=== PATIENT | male | born 1970 | race Caucasian/White ===

== ENCOUNTER 2017-01-29 10:45 | Day surgery (SDC) | payer BC ==
[2017-01-29] MEDS ORDERED: Lidocaine 2% 5 ML SDV ONE (12:29)
[2017-01-29] MEDS ORDERED: Betamethasone Acetate/Betamethasone Sod Phosphate 30 MG/5 ML MDV ONE (12:29)
[2017-01-29] MEDS ORDERED: Iopamidol 408 MG/ML 50 ML SDV ONE (12:29)
--- NOTE | 2017-01-30 12:06 | OR ---
SURGEON: Gabriela Hoskins D.O. DATE OF PROCEDURE: 01/29/2017 OR STAFF PRESENT: 1. Betzy Barry RN. 2. Jenae Egan RN. FIELD BROOMER: RT Mis WOUND CLASSIFICATION: I PREOPERATIVE DIAGNOSES: 1. Cervicalgia. 2. Cervical spondylosis. 3. Cervical degenerative disk disease. POSTOPERATIVE DIAGNOSES: 1. Cervicalgia. 2. Cervical spondylosis. 3. Cervical degenerative disk disease. PROCEDURES PERFORMED: 1. Left C4, C5 medial branch blocks. 2. Fluoroscopic guidance for needle placement. 3. Local with oral Valium for sedation. SCREENING QUESTIONS: The patient answered "No" to all the following questions: 1. Are you allergic to iodine, Betadine or latex? 2. Do you have a bleeding disorder? 3. Are you on anti-inflammatories or blood thinners? 4. Do you have any current local or systemic infections? MEDICAL NECESSITY: This is a patient with chronic low back pain who comes in for the above diagnostic procedure. This procedure is being performed in accordance with national guidelines written by the [employer]; please see medical necessity note in chart. DESCRIPTION OF PROCEDURE: The patient had the procedure thoroughly explained including risks, benefits and alternatives. Consent was signed in my clinic indicating understanding and willingness to proceed. The patient presented to [facility] outpatient [facility] and was escorted to the dressing room to disrobe and change into a hospital gown. Preoperative history and screening were performed by my nurse. Vital signs were taken and stable. The patient reported that Valium 10 milligrams was taken prior to the procedure. The patient was brought back to the procedure room and placed in the prone position on the procedure room table. The neck and upper back was prepped with ChloraPrep and sterilely draped. All personnel in the procedure room were dressed in appropriate attire including surgical scrubs, head and shoe covers. This was to ensure sterility while in the treatment room. During the time fluoroscopy was in use all personnel in the operating room wore lead ross with thyroid collars. Sterile technique was used during the procedure. The fluoroscope was positioned to provide a AP/LAT/oblique views for left cervical medial branch blocks. Then the left C4 medial branch block was begun by anesthetizing the skin and soft tissues with 2 cubic centimeters of 2% Preservative-Free Lidocaine with a 25-gauge 1.5 inchneedle. There were no signs of infection at the site of needle skin insertions. Using fluoroscopic guidance a sterile 22-gauge 3.5 inch spinal needle waspositioned at the junction of the mid lateral border of C4 lateral process. Precise needle placement was confirmed by fluoroscopy and 0.2 cubic centimeters of IsoVue-200 contrast dye which was injected through microbore tubing under live fluoroscopy and showed no intravascular flow pattern and adequate flow over the target C4 medial branch. Then 0.5 cubic centimeters of a mixture of celestone and 2% lidcaine Preservative-Free was injected slowly without complications after negative aspiration. Then the fluoroscope was positioned to provide AP/LAT/and oblique views for the left C5 medial branch. This was begun by anesthetizing the skin and soft tissues. Using fluroscopic guidance, a sterile 22-gauge 3.5 inch needle was placed at the junction of the mid lateral process of the C5 vertebral body. Precise needle placement was confirmed by fluoroscopy with 0.2 cubic centimeters of IsoVue-200 contrast dye that was injected through microbore tubing under live fluoroscopy and showed no intravascular flow pattern and adequate flow over the target medial branch. After negative aspiration, 0.5 cubic centimeters of local and celestone mixture was injected without complications. The procedure was well tolerated and vital signs were stable during and after the procedure. The staff escorted the patient to the recovery area. The patient was given both oral and written discharge and followup instructions. The patient will follow up with a pain diary. The patient was given both oral and written discharge and followup instructions. The patient voiced understanding including understanding of those signs and symptoms that would require emergency care and knows how to contact the office if there are any questions or concerns in the meantime. PREOPERATIVE PAIN: 6/10. POSTOPERATIVE PAIN: 0/10. FOLLOWUP: Follow up in the Pain Clinic in 3 weeks. HOGLCHR / SHRUTHI /[id number] BARRY
== END 2017-01-29 13:41 ==
LOC: MW.SDS 10:45
PROVIDERS: ATTEND Anesthesiology
DX: M47.892 Other spondylosis, cervical region (principal); M50.11 Cervical disc disorder with radiculopathy, high cervical region; M51.36 Other intervertebral disc degeneration, lumbar region; M96.1 Postlaminectomy syndrome, not elsewhere classified; E66.01 Morbid (severe) obesity due to excess calories; M79.1 Myalgia; G89.4 Chronic pain syndrome; G62.9 Polyneuropathy, unspecified; M51.34 Other intervertebral disc degeneration, thoracic region; F17.200 Nicotine dependence, unspecified, uncomplicated; Z88.2 Allergy status to sulfonamides; Z79.891 Long term (current) use of opiate analgesic; Z79.899 Other long term (current) drug therapy; Z68.41 Body mass index [BMI] 40.0-44.9, adult
CPT/HCPCS: 64450; 64490; 64491; J0702; Q9966

== ENCOUNTER 2017-02-12 10:57 | Day surgery (SDC) | payer BC ==
[2017-02-12] MEDS ORDERED: Lidocaine 2% 5 ML SDV ONE (11:27)
[2017-02-12] MEDS ORDERED: Ropivacaine 0.5% 5 MG/ML 30 ML SDV ONE (11:27)
[2017-02-12] MEDS ORDERED: Betamethasone Acetate/Betamethasone Sod Phosphate 30 MG/5 ML MDV ONE (11:27)
[2017-02-12] MEDS ORDERED: Iopamidol 408 MG/ML 50 ML SDV ONE (11:27)
--- NOTE | 2017-02-12 18:16 | OR ---
SURGEON: Gabriela Hoskins D.O. DATE OF PROCEDURE: 02/12/2017 OR STAFF PRESENT: 1. Jenae Egan RN. 2. Ariane Arias, endoscope technician. WOUND CLASSIFICATION: I. PREOPERATIVE DIAGNOSES: 1. Cervical spondylosis. 2. Chronic pain syndrome. 3. Cervicalgia. POSTOPERATIVE DIAGNOSES: 1. Cervical spondylosis. 2. Chronic pain syndrome. 3. Cervicalgia. PROCEDURES PERFORMED: 1. Right C4 medial branch block. 2. Right C5 medial branch block. 3. Fluoroscopic guidance for needle placement. 4. Local with oral Valium for sedation. SCREENING QUESTIONS: The patient answered "No" to all the following questions: 1. Are you allergic to iodine, Betadine or latex? 2. Do you have a bleeding disorder? 3. Are you on anti-inflammatories or blood thinners? 4. Do you have any current local or systemic infections? MEDICAL NECESSITY: This is a patient with chronic low back pain who comes in for the above diagnostic procedure. This procedure is being performed in accordance with national guidelines written by the [employer]; please see medical necessity note in chart. DESCRIPTION OF PROCEDURE: The patient had the procedure thoroughly explained including risks, benefits and alternatives. Consent was signed in my clinic indicating understanding and willingness to proceed. The patient presented to [facility] outpatient [facility] and was escorted to the dressing room to disrobe and change into a hospital gown. Preoperative history and screening were performed by my nurse. Vital signs were taken and stable. The patient reported that Valium 10 milligrams was taken prior to the procedure. The patient was brought back to the procedure room and placed in the prone position on the procedure room table. A pillow was placed under the abdomen in order to flatten the lumbar lordosis. The back was prepped with ChloraPrep and sterilely draped. All personnel in the procedure room were dressed in appropriate attire including surgical scrubs, head and shoe covers. This was to ensure sterility while in the treatment room. During the time fluoroscopy was in use all personnel in the operating room wore lead ross with thyroid collars. Sterile technique was used during the procedure. The fluoroscope was positioned to provide a right oblique view. Then the right C4 medial branch block was begun by anesthetizing the skin and soft tissues with 2 cubic centimeters of 2% Preservative-Free Lidocaine with a 25-gauge 1.5 inch needle. There were no signs of infection at the site of needle skin insertions. Using fluoroscopic guidance a sterile 22-gauge 3.5 inch spinal needle was positioned at the midline junction of the lateral C4 vertebral body. Precise needle placement was confirmed by fluoroscopy and 0.2 cubic centimeters of IsoVue-200 contrast dye which was injected through microbore tubing under live fluoroscopy and showed no intravascular flow pattern and adequate flow over the target C4 medial branch. Then 0.5 cubic centimeters of mixture of celestone and 2% lidocaine Preservative -Free was injected slowly without complications after negative aspiration. Then the fluoroscope was positioned to provide a right oblique view for the right C5 medial branch. This was begun by anesthetizing the skin and soft tissues. The fluoroscope was positioned and a sterile 22-gauge 3.5 inch needle was placed at the middle junction of the articular process of the C5 vertebral body. Precise needle placement was confirmed by fluoroscopy. Then 0.2 cubic centimeters of IsoVue-200 contrast dye was injected through microbore tubing under live fluoroscopy and showed no intravascular flow pattern and adequate flow over the target medial branch. After negative aspiration, 0.5 cubic centimeters celestone and lidocaine PF was injected without complications. The procedure was well tolerated and vital signs were stable during and after the procedure. The staff escorted the patient to the recovery area. The patient was given both oral and written discharge and followup instructions. The patient will follow up with a pain diary which will be evaluated over this evening doing things that would normally cause pain. We will evaluate the efficacy of the diagnostic lumbar medial branch blocks as the patient will follow up in the clinic the next day. The patient was given both oral and written discharge and followup instructions. The patient voiced understanding including understanding of those signs and symptoms that would require emergency care and knows how to contact the office if there are any questions or concerns in the meantime. PREOPERATIVE PAIN: 7/10. POSTOPERATIVE PAIN: 0/10. FOLLOWUP: Follow up in the Pain Clinic in 3 weeks. CIPRIANO / SHRUTHI /[id number] BARRY
== END 2017-02-12 13:34 ==
LOC: MW.SDS 10:57
PROVIDERS: ATTEND Anesthesiology
PROC: 3E0U3BZ Introduction of Anesthetic Agent into Joints, Percutaneous Approach (ICD-10-PCS; principal; 2017-02-12)
DX: M47.892 Other spondylosis, cervical region (principal); G89.4 Chronic pain syndrome; M54.12 Radiculopathy, cervical region; E66.01 Morbid (severe) obesity due to excess calories; G62.9 Polyneuropathy, unspecified; M51.34 Other intervertebral disc degeneration, thoracic region; M54.17 Radiculopathy, lumbosacral region; M51.36 Other intervertebral disc degeneration, lumbar region; M79.1 Myalgia; F17.200 Nicotine dependence, unspecified, uncomplicated; Z88.2 Allergy status to sulfonamides; Z79.899 Other long term (current) drug therapy; Z68.41 Body mass index [BMI] 40.0-44.9, adult
CPT/HCPCS: 64450; J0702; Q9966; J2795

== ENCOUNTER 2017-03-03 11:30 | Emergency (ER) | payer BC ==
[2017-03-03 12:36] LABS: CHLORIDE,CL 109 mmol/L (98-110); SODIUM,NA 139 mmol/L (136-146)
[2017-03-03] MEDS ORDERED: Alum Hydrox/Mag Hydrox/Simeth 15 ML, Lidocaine 2% 5 ML PO ONE ×2 (12:51)
[2017-03-03 16:03] VITALS: BP 113/68
--- NOTE | 2017-03-03 19:54 | EDM.PDOC ---
ED HISTORY OF PRESENT ILLNESS - General Chief Complaint: Chest Pain Stated Complaint: CHEST PAIN Time Seen by Provider: 03/03/17 11:34 Source of Information: Reports: Patient History Limitations: Reports: No limitations - History of Present Illness INITIAL COMMENTS - FREE TEXT/NARRATIVE: Presents reporting right upper quadrant pain along with some sweating. The patient states that this morning he had some reflux along with right upper quadrant pain. He has had this before but not as severe and it did not last as long. He does became concerned and came to the emergency room. He denies nausea , shortness of breath, URI symptoms, fever. He has had a previous cholecystectomy and he does take Prevacid for acid reflux. - Related Data Allergies/ADRs: Allergies Allergy/AdvReac Type Severity Reaction Status Date / Time Sulfa (Sulfonamide Allergy Hives Verified 03/03/17 11:43 Antibiotics) Home Meds: Home Meds Baclofen 10 mg PO ASDIRECTED PRN 05/08/15 [History] Diclofenac Sodium [Voltaren] 1 applic TOP ASDIRECTED 05/08/15 [History] Gabapentin [Neurontin] 900 mg PO TID 05/08/15 [History] Hydrocodone/Acetaminophen [Hydrocodon-Acetaminophn 10-325] 1 tab PO ASDIRECTED PRN 05/08/15 [History] Omeprazole 1 tab PO DAILY 05/08/15 [History] buPROPion [buPROPion XL] 1 tab PO DAILY 05/08/15 [History] DULoxetine HCl [Cymbalta] 20 mg PO BID 02/22/16 [History] Diazepam [Valium] 10 mg PO Q8HR 02/22/16 [History] oxyCODONE ER [OxyCONTIN] 10 mg PO Q12HR 02/22/16 [History] Past Medical History - Past Health History Medical/Surgical History: Denies Medical/Surgical History Gastrointestinal History: Reports: GERD Musculoskeletal History: Reports: Arthritis, Back pain, chronic Other Musculoskeletal History: Chronic upper back pain, arthritis - Infectious Disease History Infectious Disease History: Reports: Chicken pox - Past Surgical History GI Surgical History: Reports: Cholecystectomy Other Neurological Surgeries/Procedures: Microdiskectomy to low back Musculoskeletal Surgical History: Reports: Other (see below) Other Musculoskeletal Surgeries/Procedures:: L3-L4 discetomy, L4-L5 laminectomy 02/2016. Social & Family History - Family History Family Medical History: Noncontributory Oncologic: Reports: Breast - Tobacco Use Smoking Status *Q: Never Smoker Years of Tobacco use: 25 Packs/Tins Daily: 1 - Caffeine Use Caffeine Use: Reports: None - Recreational Drug Use Recreational Drug Use: No Drug Use in Last 12 Months: No ED ROS GENERAL - Review of Systems Review Of Systems: ROS reveals no pertinent complaints other than HPI. ED EXAM, GENERAL - Physical Exam Exam: See Below Exam Limited By: No limitations General Appearance: alert, no apparent distress Ears: normal external exam Nose: normal inspection Throat/Mouth: Normal inspection Head: atraumatic, normocephalic Neck: normal inspection Respiratory/Chest: no respiratory distress, lungs clear, normal breath sounds Cardiovascular: normal peripheral pulses, regular rate, rhythm, no murmur GI/Abdominal: normal bowel sounds, soft, non tender, no distention Back Exam: normal inspection Extremities: normal inspection Neurological: alert, oriented Psychiatric: normal affect, normal mood Skin Exam: Warm, Dry, Intact, Normal color, No rash Lymphatic: no adenopathy Course - Vital Signs Last Recorded V/S: Last Vital Signs Temp 36.1 C 03/03/17 11:41 Pulse 78 03/03/17 14:09 Resp 20 03/03/17 11:41 BP 113/68 03/03/17 14:09 Pulse Ox 96 03/03/17 14:09 - Orders/Labs/Meds Orders: Active Orders 24 hr Category Date Time Status EKG Documentation Completion [RC] STAT Care 03/03/17 11:43 Active Labs: Laboratory Tests 03/03/17 03/03/17 03/03/17 Range/Units 11:56 11:56 11:56 WBC 7.44 (4.0-11.0) K/uL RBC 5.48 (4.50-5.90) M/uL Hgb 15.7 (13.0-17.0) g/dL Hct 45.2 (38.0-50.0) % MCV 82.5 (80.0-98.0) fL MCH 28.6 (27.0-32.0) pg MCHC 34.7 (31.0-37.0) g/dL RDW Std Deviation 39.6 (28.0-62.0) fl RDW Coeff of Luis Carlos 13 (11.0-15.0) % Plt Count 254 (150-400) K/uL MPV 11.10 (7.40-12.00) fL Neut % (Auto) 59.4 (48.0-80.0) % Lymph % (Auto) 29.2 (16.0-40.0) % Reynolds % (Auto) 7.1 (0.0-15.0) % Eos % (Auto) 3.6 (0.0-7.0) % Baso % (Auto) 0.7 (0.0-1.5) % Neut # (Auto) 4.4 (1.4-5.7) K/uL Lymph # (Auto) 2.2 (0.6-2.4) K/uL Reynolds # (Auto) 0.5 (0.0-0.8) K/uL Eos # (Auto) 0.3 (0.0-0.7) K/uL Baso # (Auto) 0.1 (0.0-0.1) K/uL Nucleated RBC % 0.0 /100WBC Nucleated RBCs # 0 K/uL Sodium 139 (136-146) mmol/L Potassium 4.0 (3.5-5.1) mmol/L Chloride 109 (98-110) mmol/L Carbon Dioxide 22 (21-31) mmol/L BUN 13 (6.0-23.0) mg/dL Creatinine 0.8 (0.6-1.5) mg/dL Est Cr Clr Drug Dosing TNP Estimated GFR (MDRD) > 60.0 ml/min Glucose 134 H (60-110) mg/dL Calcium 9.0 (8.8-10.8) mg/dL Total Bilirubin 0.7 (0.1-1.5) mg/dL AST 30 (5-40) IU/L ALT 56 H (8-54) IU/L Alkaline Phosphatase 104 (40-150) Troponin I < 0.10 (0.0-0.29) NG/ML Total Protein 7.0 (6.0-8.0) g/dL Albumin 4.0 (3.5-5.0) g/dL Globulin 3.0 (2.0-3.5) g/dL Albumin/Globulin Ratio 1.3 (1.3-2.8) Amylase 34 (10-90) U/L Lipase 13 (7-80) U/L Meds: Medications Discontinued Medications Generic Name Dose Route Start Last Admin Trade Name Jamil PRN Reason Stop Dose Admin Al Hydroxide/Mg Hydroxide 15 0 ml 03/03/17 12:51 03/03/17 16:00 ml/ Lidocaine HCl 5 ml PO 03/03/17 12:52 20 each ONETIME ONE Administration Departure - Departure Time of Disposition: 14:09 Disposition: Home, Self-Care 01 Condition: good Clinical Impression: Abdominal pain Qualifiers: Abdominal location: right upper quadrant Qualified Code(s): R10.11 - Right upper quadrant pain Referrals: Crystal Paulson NP [Primary Care Provider] - Forms: ED Department Discharge Additional Instructions: 1. No explanation for your symptoms has been found 2. please followup in primary care. Your EKG and lab was normal today. 3. TUMS as needed for acid reflux - My Orders Last 24 Hours: My Active Orders 03/03/17 11:43 EKG Documentation Completion [RC] STAT - Assessment/Plan Last 24 Hours: My Active Orders 03/03/17 11:43 EKG Documentation Completion [RC] STAT
== END 2017-03-03 14:09 | disposition home or self-care (01) ==
LOC: MW.ED 11:30
DX: R10.11 Right upper quadrant pain (principal); K21.9 Gastro-esophageal reflux disease without esophagitis; Z88.2 Allergy status to sulfonamides; Z79.899 Other long term (current) drug therapy
CPT/HCPCS: 36415; 80053; 82150; 83690; 84484; 85025; 93005; 99285; A9270; 99283

== ENCOUNTER → 2017-03-05 | Outpatient (CLI) | payer BC | LOC: MW.CHPM 08:52 | PROVIDERS: ATTEND Anesthesiology | DX: Z51.81 Encounter for therapeutic drug level monitoring (principal); Z79.891 Long term (current) use of opiate analgesic | CPT/HCPCS: 80305 ==

== ENCOUNTER 2017-05-26 10:41 | Day surgery (SDC) | payer BC ==
--- NOTE | 2017-05-26 11:16 | PCM.PREANE ---
Preanesthetic Assessment - Anesthesia/Transfusion/Family Hx Anesthesia History: Prior Anesthesia Without Reaction Other Type of Anesthesia Reaction Comment: Denies any known problem in past, no known family hx: problems Family History of Anesthesia Reaction: No Transfusion History: No Prior Transfusion(s) Intubation History: Unknown - Review of Systems General: No Symptoms Pulmonary: No Symptoms Cardiovascular: No Symptoms Gastrointestinal: No symptoms Neurological: No Symptoms Other: Reports: None - Physical Assessment Height: 1.85 m Weight: 140 kg ASA Class: 2 Mental Status: Alert & Oriented x3 Airway Class: Mallampati = 3 Dentition: Reports: Normal Dentition Thyro-Mental Finger Breadths: 3 Mouth Opening Finger Breadths: 2 (very small mouth) ROM/Head Extension: Full Lungs: Clear to auscultation, Normal respiratory effort Cardiovascular: Regular Rate, Regular Rhythm - Allergies Allergies/Adverse Reactions: Allergies Allergy/AdvReac Type Severity Reaction Status Date / Time Sulfa (Sulfonamide Allergy Hives Verified 03/03/17 11:43 Antibiotics) - Blood Blood Available: No - Anesthesia Plan Pre-Op Medication Ordered: None - Acknowledgements Anesthesia Type Planned: MAC Pt an Appropriate Candidate for the Planned Anesthesia: Yes Alternatives and Risks of Anesthesia Discussed w Pt/Guardian: Yes Pt/Guardian Understands and Agrees with Anesthesia Plan: Yes PreAnesthesia Questionnaire - Past Health History Medical/Surgical History: Denies Medical/Surgical History HEENT History: Reports: Other (See Below) Other HEENT History: wears glasses Respiratory History: Reports: Sleep Apnea Other Respiratory History: uses CPAP Gastrointestinal History: Reports: GERD Musculoskeletal History: Reports: Arthritis, Back Pain, Chronic Other Musculoskeletal History: Chronic upper back pain, arthritis Psychiatric History: Reports: Anxiety, Depression Endocrine/Metabolic History: Reports: Obesity/BMI 30+ (BMI 40.7) - Infectious Disease History Infectious Disease History: Reports: Chicken Pox - Past Surgical History Head Surgeries/Procedures: Reports: None HEENT Surgical History: Reports: Other (See Below) (corrective eye surgery) GI Surgical History: Reports: Cholecystectomy, EGD Neurological Surgical History: Reports: Lumbar Spine Other Neurological Surgeries/Procedures: Microdiskectomy to low back Musculoskeletal Surgical History: Reports: Other (See Below) Other Musculoskeletal Surgeries/Procedures:: L3-L4 discetomy, L4-L5 laminectomy 02/2016. Dermatological Surgical History: Reports: Other (See Below) (exc. of back lipoma ) - SUBSTANCE USE Smoking Status *Q: Former Smoker (quit 6-7 years ago) Tobacco Use Within Last Twelve Months: Snuff/Dip Recreational Drug Use History: No - HOME MEDS Home Medications: Home Meds Diclofenac Sodium [Voltaren] 1 applic TOP ASDIRECTED PRN 05/08/15 [History] Gabapentin [Neurontin] 900 mg PO TID 05/08/15 [History] DULoxetine HCl [Cymbalta] 60 mg PO DAILY 02/22/16 [History] Diazepam [Valium] 1 - 2 tab PO ASDIRECTED PRN 02/22/16 [History] oxyCODONE ER [OxyCONTIN] 10 mg PO Q12HR PRN 02/22/16 [History] Ketamine Hcl Soln 1 applic TOP ASDIRECTED PRN 05/25/17 [History] LORazepam 1 mg PO BEDTIME PRN 05/25/17 [History] Lidocaine/Prilocaine [Lidocaine-Prilocaine Cream] 1 applic TOP ASDIRECTED PRN [History] Methocarbamol 750 mg PO TID 05/25/17 [History] Mometasone Furoate [Nasonex] 1 spray NASBOTH DAILY 05/25/17 [History] Ranitidine HCl [Zantac] 150 mg PO BID 05/25/17 [History] oxyCODONE HCl [Oxycontin] 15 mg PO ASDIRECTED PRN 05/25/17 [History]
[2017-05-26] MEDS ORDERED: Lidocaine 2% 5 ML SDV ONE (11:45)
[2017-05-26] MEDS ORDERED: Propofol 200 MG/20 ML SDV ONE (11:51)
[2017-05-26] MEDS ORDERED: fentaNYL 250 MCG/5 ML SDV ONE (11:51)
[2017-05-26] MEDS ORDERED: Midazolam 1 MG/ML 2 ML SDV ONE (11:51)
[2017-05-26] MEDS ORDERED: ceFAZolin 2 GM in Premix Bag 1 BAG IV ONE (12:17)
--- NOTE | 2017-05-26 15:13 | PCM48HPAN ---
Post Anesthesia Note - EVALUATION WITHIN 48HRS OF ANESTHETIC Vital Signs in Normal Range: Yes Patient Participated in Evaluation: Yes Respiratory Function Stable: Yes Airway Patent: Yes Cardiovascular Function Stable: Yes Hydration Status Stable: Yes Pain Control Satisfactory: Yes Nausea and Vomiting Control Satisfactory: Yes Mental Status Recovered: Yes - COMMENTS/OBSERVATIONS Free Text/Narrative:: no anesthesia problems. Patient skipped recovery room phase of postoperative care.
--- NOTE | 2017-05-26 16:38 | CR ---
EXAMINATION: Thoracic spine HISTORY: Low back pain COMPARISON: None TECHNIQUE: 11 fluoroscopic images provided FINDINGS/IMPRESSION: Operative control films demonstrate placement of 2 spinal stimulator leads with in the midthoracic spine at approximately T5-T7.
--- NOTE | 2017-05-26 23:39 | OR ---
SURGEON: Gabriela Hoskins D.O. DATE OF PROCEDURE: 05/26/2017 ANESTHESIA: MAC. ANESTHESIOLOGIST: Betzy Huff CRNA. OR STAFF PRESENT: 1. Lane Skinner RN. 2. Claudia Bear RN. 3. Tawnya Altamirano CST. QUALITY TECHNICIAN FIBERGLASS: RT Claudia. WOUND CLASSIFICATION: 1. PREOPERATIVE DIAGNOSES: 1. Chronic pain syndrome. 2. Lumbar radiculopathy. 3. Thoracic radiculopathy. 4. Peripheral neuropathy, bilateral lower extremities. 5. Failed back surgery syndrome, lumbar POSTOPERATIVE DIAGNOSES: 1. Chronic pain syndrome. 2. Lumbar radiculopathy. 3. Thoracic radiculopathy. 4. Peripheral neuropathy, bilateral lower extremities. 5. Failed back surgery syndrome, lumbar PROCEDURE PERFORMED: 1. Spinal cord stimulator trial with [employer] Infinion 16 , 50 cm, 16 contact trial lead placed to the top of T5 on the right. 2. Spinal cord stimulator trial with [employer] Infinion 16 , 50 cm, 16 contact trial lead to the top of T5 on the right. 3. Fluoroscopic guidance for needle placement. 4. Local with oral Valium for sedation. SCREENING QUESTIONS: The patient answered no to all the following questions: 1. Are you allergic to iodine, Betadine, or latex? 2. Do you have a bleeding disorder? 3. Are you on anti-inflammatories or blood thinners? 4. Are you ? 5. Do you have any current local or systemic infections? 6. Do you have any joint replacements, heart valve replacements or a pacemaker? DESCRIPTION OF PROCEDURE: The patient had the procedure thoroughly explained including risks, benefits, and alternatives. Consent was signed in my clinic indicating understanding and willingness to proceed. The patient presented to [facility] and was escorted to the dressing room to disrobe and change into a hospital gown. Preoperative history and screening were performed by the nurse. Vital signs were taken and stable. The patient was set up with an IV prior to the procedure. The patient was brought back to the procedure room and placed in the prone position on the procedure room table. A pillow was placed under the abdomen in order to flatten the lumbar lordosis. The patient was positioned comfortably and there was no evidence of infection at the sites of needle insertion. The back was prepped with ChloraPrep and sterilely draped. All personnel in the operating room were dressed in appropriate attire including surgical scrubs, head and shoe covers. This was to ensure sterility while in the treatment room. During the time fluoroscopy was in use, all personnel in the operating room wore lead ross with thyroid collars. Sterile technique was used during the procedure. Prior to the start of the procedure, prophylactic antibiotic was administered IV. Skeletal landmarks were identified under fluoroscopic guidance. At all insertion sites, the skin and soft tissues were anesthetized with 2% lidocaine preservative-free with a sterile 27-gauge 1-1/2 inch needle. The epidural space was entered with a 14-gauge Tuohy epidural needle with loss-of- resistance to technique. Under live fluoroscopic guidance, the 16 standard contact lead was advanced approximately to the slight left of midline at the top of the T5 vertebral body on the left and then the procedure was repeated on the right. No CSF, no heme, and no paresthesia were noted. The spinal cord stimulator leads were noted in the appropriate posterior position of the epidural space by AP and lateral views of fluoroscopy. Then testing by the [facility] neuromodulation clinical specialist revealed appropriate coverage of the patient's normal areas of pain. The leads were then secured to the skin with occlusive dressing. No complications were noted throughout the procedure and vital signs were stable. Then the patient was brought to the recovery room in stable condition. At that time, the patient had additional stimulation patterns programmed which covered all the normal areas of pain. The patient tolerated the procedure well and was released home with postoperative instructions for followup in the clinic. The patient will fill out a pain diary throughout the week of the spinal cord stimulator trial. Additionally, prior to discharge, postoperative instructions were given to the patient and the patient voiced understanding, including understanding of those signs and symptoms that would require emergency care. PREOPERATIVE PAIN: 8/10. POSTOPERATIVE PAIN: 0/10. PLAN: Followup in the Pain Clinic in the morning to evaluate the spinal cord stimulator trial. CIPRIANO / SHRUTHI /[id number] BARRY
== END 2017-05-26 14:56 ==
LOC: MW.SDS 10:41
PROVIDERS: ATTEND Anesthesiology
DX: G89.4 Chronic pain syndrome (principal); M54.16 Radiculopathy, lumbar region; M54.14 Radiculopathy, thoracic region; G62.9 Polyneuropathy, unspecified; Z88.2 Allergy status to sulfonamides; E66.01 Morbid (severe) obesity due to excess calories; Z68.41 Body mass index [BMI] 40.0-44.9, adult; Z79.891 Long term (current) use of opiate analgesic; Z79.899 Other long term (current) drug therapy; F17.210 Nicotine dependence, cigarettes, uncomplicated
CPT/HCPCS: 63685; 76001; C1778; J0690; J2250; J3010; 01936; 63650; J2704

== ENCOUNTER 2017-07-02 12:16 | Day surgery (SDC) | payer BC ==
[~2017-07-02 12:16] MED LIST: Betamethasone Acetate/Betamethasone Sod Phosphate 30 MG/5 ML MDV ONE; Lidocaine 2% 5 ML SDV ONE; Ropivacaine 0.5% 5 MG/ML 30 ML SDV ONE
[2017-07-02] MEDS ORDERED: Iopamidol 408 MG/ML 200 ML SDV IV ONE (12:17)
--- NOTE | 2017-07-02 21:17 | OR ---
SURGEON: Gabriela Hoskins D.O. DATE OF PROCEDURE: 07/02/2017 OR STAFF PRESENT: 1. Ishaan Gold. 2. Yue Leos. WOUND CLASS: 1. PREOPERATIVE DIAGNOSES: 1. Thoracic degenerative disk disease. 2. Thoracic radiculopathy. 3. Chronic back pain. POSTOPERATIVE DIAGNOSES: 1. Thoracic degenerative disk disease. 2. Thoracic radiculopathy. 3. Chronic back pain. PROCEDURE PERFORMED: 1. Intralaminar epidural injection at T3-T4. 2. Fluoroscopic guidance for needle placement. 3. Local with oral valium for sedation. SCREENING QUESTIONS: The patient answered "no" to all of the following questions: 1. Are you allergic to latex? 2. Do you have a bleeding disorder? 3. Do you have any current local or systemic infections? 4. Are you taking any anti-inflammatories or blood thinners? 5. Do you have any joint replacements, heart valve replacements, or a pacemaker? DESCRIPTION OF PROCEDURE: The patient had the procedure thoroughly explained including all possible risks, benefits and alternatives. Consent was signed in my clinic indicating understanding and willingness to proceed. The patient presented to [facility] and was escorted to the dressing room to disrobe and change into a hospital gown. Preoperative vital signs were taken and stable. The patient reported that Valium was taken prior to the procedure. The patient was brought back to the procedure room and placed in the prone position on the procedure room table. A pillow was placed under the hips in order to flatten the lumbar lordosis. The back was prepped with ChloraPrep and sterilely draped. All personnel in the operating room were dressed in appropriate attire including surgical scrubs, head and shoe covers. This was to ensure sterility while in the treatment room. During the time fluoroscopy was in use, all personnel in the operating room wore lead ross with thyroid collars. Sterile technique was used throughout the procedure. The patient was awake and conversant throughout the procedure. There was no evidence of infection at the site of needle insertion. Skeletal landmarks were identified under fluoroscopy for the thoracic epidural. Skin was anesthetized with 2% lidocaine with a sterile 27-gauge 1.5 inch needle. Then a 20-gauge Tuohy epidural needle was placed in the epidural space with loss of resistance technique under fluoroscopic guidance. No heme, cerebrospinal fluid, or paresthesias were noted. Isovue-200 contrast dye was injected in 0.2 cubic centimeter increments and seen to outline the epidural space in both AP and lateral views. There was no intravascular flow pattern observed under live fluoroscopy. Then 12 milligrams of Celestone was slowly injected after negative aspiration. The patient tolerated the procedure well. Vital signs were stable during and after the procedure. The staff escorted the patient to the recovery area and the patient was released in stable condition after a brief stay in the recovery room monitored by the nurse. The patient was given both oral and written discharge and follow up instructions with recommendation to follow up given for 2-3 weeks. The patient voiced understanding including understanding of those signs and symptoms that would require emergency care. The patient knows how to contact the office if there are any additional problems or questions in the meantime. PREOPERATIVE PAIN: 10. POSTOPERATIVE PAIN: 11/18. FOLLOWUP: Followup in pain clinic in 1 month. CIPRIANO / SHRUTHI /[id number] BARRY
== END 2017-07-02 14:12 ==
LOC: MW.SDS 12:16
PROVIDERS: ATTEND Anesthesiology
DX: G89.4 Chronic pain syndrome (principal); M51.14 Intervertebral disc disorders with radiculopathy, thoracic region; M51.16 Intervertebral disc disorders with radiculopathy, lumbar region; M96.1 Postlaminectomy syndrome, not elsewhere classified; E66.01 Morbid (severe) obesity due to excess calories; G62.9 Polyneuropathy, unspecified; M47.24 Other spondylosis with radiculopathy, thoracic region; F17.200 Nicotine dependence, unspecified, uncomplicated; M19.90 Unspecified osteoarthritis, unspecified site; Z88.2 Allergy status to sulfonamides; Z79.891 Long term (current) use of opiate analgesic; Z79.51 Long term (current) use of inhaled steroids; Z79.899 Other long term (current) drug therapy; Z98.890 Other specified postprocedural states; Z68.41 Body mass index [BMI] 40.0-44.9, adult
CPT/HCPCS: 62321; J0702; Q9966; 62323; J2795

== ENCOUNTER 2018-04-22 11:45 | Day surgery (SDC) | payer BC ==
[~2018-04-22 11:45] MED LIST changes: +Iopamidol 408 MG/ML 50 ML SDV ONE
--- NOTE | 2018-04-22 19:41 | OR ---
SURGEON: Gabriela Hoskins D.O. DATE OF PROCEDURE: 04/22/2018 OR STAFF PRESENT: 1. Sp Skinner RN. 2. Sp Suarez RN. 3. Lien Castro RN. 4. Chase Lopez, RT. WOUND CLASSIFICATION: I. PREOPERATIVE DIAGNOSES: 1. Thoracic spondylosis. 2. Thoracic back pain. 3. Thoracic degenerative disk disease. 4. Thoracic facet syndrome. POSTOPERATIVE DIAGNOSES: 1. Thoracic spondylosis. 2. Thoracic back pain. 3. Thoracic degenerative disk disease. 4. Thoracic facet syndrome. PROCEDURES PERFORMED: 1. Right T2 medial branch block. 2. Right T3 medial branch block. 3. Right T4 medial branch block. 4. Left T2 medial branch block. 5. Left T3 medial branch block. 6. Left T4 medial branch block. 7. Fluoroscopic guidance for needle placement. 8. Local with oral Valium for sedation. SCREENING QUESTIONS: The patient answered "No" to all the following questions: 1. Are you allergic to iodine, Betadine or latex? 2. Do you have a bleeding disorder? 3. Are you on anti-inflammatories or blood thinners? 4. Do you have any current local or systemic infection? DESCRIPTION OF PROCEDURE: The patient had the procedure thoroughly explained including risks, benefits and alternatives. Consent was signed in my clinic indicating understanding and willingness to proceed. The patient presented to [facility] and was escorted to the dressing room to disrobe and change into a hospital gown. Preoperative history and screening were performed by my nurse. Vital signs were taken and stable. The patient reported that Valium 10 milligrams was taken prior to the procedure. The patient was brought back to the procedure room and placed in the prone position on the procedure room table. The back was prepped with ChloraPrep and sterilely draped. All personnel in the procedure room were dressed in appropriate attire including surgical scrubs, head and shoe covers. This was to ensure sterility while in the treatment room. During the time fluoroscopy was in use all personnel in the operating room wore lead ross with thyroid collars. Sterile technique was used during the procedure. The fluoroscope was positioned to provide a right oblique view. Then, the right T2 medial branch block was begun by anesthetizing the skin and soft tissues with 2 cubic centimeters of 2% Preservative-Free Lidocaine with a 25-gauge 1.5 inch needle. There were no signs of infection at the site of needle skin insertions. Using fluoroscopic guidance a sterile 22-gauge 3.5 inch spinal needle was positioned at the superior lateral transverse process of the T3 vertebral body. Precise needle placement was confirmed by fluoroscopy with 0.2 cc increments of Isovue-200 contrast dye which was injected through microbore tubing under live fluoroscopy and showed no intravascular flow pattern and adequate flow over the target T3 medial branch. Then, 0.5 cubic centimeters of Celestone and 0.5% Ropivacaine Preservative-Free was injected slowly without complications after negative aspiration. Then, the fluoroscope was positioned to provide a right oblique view for the right T3 medial branch. This was begun by anesthetizing the skin and soft tissues. The fluoroscope was positioned and a sterile 22-gauge 3.5 inch needle was placed at the superior lateral transverse process of the T4 vertebral body. Precise needle placement was confirmed by fluoroscopy. Then, 0.2 cubic centimeters of Isovue-200 contrast dye was injected through microbore tubing under live fluoroscopy and showed no intravascular flow pattern and adequate flow over the target medial branch. After negative aspiration, 0.5 cubic centimeters of Celestone and 0.5% Ropivacaine was injected without complications. The fluoroscope was then positioned to provide a right T4 medial branch block. This was begun by anesthetizing the skin and soft tissues. Then, using fluoroscopic guidance, a sterile 22-gauge 3.5 inch spinalneedle was positioned at the right superior lateral transverse processes of the T5 vertebral body. Precise needle placement was confirmed by fluoroscopy in AP and oblique views, and 0.2 cubic centimeters of Isovue-200 contrast dye was injected through microbore tubing under live fluoroscopy and showed no intravascular flow pattern and adequate flow over the target nerves. After negative aspiration, 0.5 cubic centimeters of Celestone and 0.5% Ropivacaine was injected. No complications were noted. Then attention was turned to the left side. The fluoroscope was positioned to provide a left oblique view for the left T2 medial branch block. This was begun by anesthetizing the skin and soft tissues. Then, a 22-gauge 3.5 inch needle was positioned at the superior lateral transverse process of the left T3 vertebral body. Precise needle placement was confirmed by fluoroscopy with 0.2 cubic centimeters of Isovue-200 contrast dye injected through microbore tubing under live fluoroscopy showing no intravascular flow pattern and adequate flow over the target medial branch of T2 on the left. After negative aspiration, 0.5 cubic centimeters of Celestone and 0.5% Ropivacaine was injected without complications. The fluoroscope was positioned then to provide a left T3 medial branch block. The skin was anesthetized. Then, a 22-gauge 3.5 inch spinal needle was positioned at the superior lateral junction of the transverse process of the T4 vertebral body on the left. Precise needle placement was confirmed by fluoroscopy and with 0.2 cubic centimeters of Isovue-200 contrast dye injected through microbore tubing showing no intravascular flow pattern and adequate flow over the target medial branch of T4 on the left. Then, 0.5 cubic centimeters of Celestone and 0.5% Ropivacaine was injected after negative aspiration without complications. Then the fluoroscope was positioned for the left T4 medial branch block. This was begun by anesthetizing the skin and soft tissues. Then, with fluoroscopic guidance a sterile 22-gauge 3.5 inch spinal needle was positioned at the left superior lateral transverse process of the T5 vertebral body Precise needle placement was confirmed with 0.2 cubic centimeters increments of Isovue-200 contrast dye injected through microbore tubing under live fluoroscopy showing no intravascular flow pattern and adequate flow over the target T5 nerve. Then 0.5 mL of Celestone and 0.5% ropivacaine was injected after negative aspiration. The procedure was well tolerated and vital signs were stable during and after the procedure. The staff escorted the patient to the recovery area. The patient was given both oral and written discharge and followup instructions. The patient will follow up with a pain diary which will be evaluated over this evening doing things that would normally cause pain. We will evaluate the efficacy of the diagnostic portion of the horacic medial branch block procedure The patient was given both oral and written discharge and followup instructions. The patient voiced understanding including understanding of those signs and symptoms that would require emergency care and knows how to contact the office if there are any questions or concerns in the meantime. PREOPERATIVE PAIN: 7/10. POSTOPERATIVE PAIN: 12/19. PLAN: Follow up in the Pain Clinic in 3 weeks. CIPRIANO / SHRUTHI /[id number] MTDD
== END 2018-04-22 13:39 | disposition home or self-care (01) ==
LOC: MW.SDS 11:45
PROVIDERS: ATTEND Anesthesiology
DX: M51.34 Other intervertebral disc degeneration, thoracic region (principal); M47.814 Spondylosis without myelopathy or radiculopathy, thoracic region; M46.94 Unspecified inflammatory spondylopathy, thoracic region; M50.10 Cervical disc disorder with radiculopathy, unspecified cervical region; M46.92 Unspecified inflammatory spondylopathy, cervical region; M51.16 Intervertebral disc disorders with radiculopathy, lumbar region; M96.1 Postlaminectomy syndrome, not elsewhere classified; E66.01 Morbid (severe) obesity due to excess calories; Z68.41 Body mass index [BMI] 40.0-44.9, adult; G62.9 Polyneuropathy, unspecified; F17.200 Nicotine dependence, unspecified, uncomplicated; Z88.2 Allergy status to sulfonamides; Z79.899 Other long term (current) drug therapy
CPT/HCPCS: 64490; 64491; J0702; J2795; Q9966

== ENCOUNTER 2018-05-06 11:19 | Day surgery (SDC) | payer BC ==
[~2018-05-06 11:19] MED LIST changes: +Lidocaine 1% 0 ML ONE
--- NOTE | 2018-05-06 15:20 | OR ---
SURGEON: Gabriela Hoskins D.O. DATE OF PROCEDURE: 05/06/2018 OR STAFF PRESENT: 1. Lien Alejandro RN. 2. Chase Lopez RT. 3. Sp Skinner RN. PREOPERATIVE DIAGNOSIS: Cervical facet arthropathy. POSTOPERATIVE DIAGNOSIS: Cervical facet arthropathy. PROCEDURES PERFORMED: 1. Right C4 medial branch block, right C5 medial branch block, right C6 medial branch block. 2. Fluoroscopic guidance for needle placement. 3. Local with oral Valium for sedation. SCREENING QUESTIONS: The patient answered "No" to all of the following questions: 1. Are you allergic to iodine, Betadine or latex? 2. Do you have a bleeding disorder? 3. Are you on anti-inflammatories or blood thinners? 4. Do you have any current local or systemic infections? 5. Do you have any joint replacements, heart valve replacements or a pacemaker? DESCRIPTION OF THE PROCEDURE: The patient had the procedure thoroughly explained including risks, benefits and alternatives. Consent was signed in my clinic indicating understanding and willingness to proceed. The patient presented to [facility] and was escorted to the dressing room to disrobe and change into a hospital gown. Preoperative vital signs were taken and stable. The patient reported that Valium 10 milligrams was taken prior to the procedure. The patient was brought to the procedure room and placed in the prone position on the [facility] frame for the cervical epidural steroid injection. A pillow was placed under the legs for patient comfort. The back was prepped with ChloraPrep and sterilely draped. All personnel in the operating room were dressed in appropriate attire including surgical scrubs, head and shoe covers. This was to ensure sterility while in the treatment room. During the time fluoroscopy was in use. all personnel in the operating room wore lead ross with thyroid collars. Sterile technique was used during the procedure. Skeletal landmarks were identified under fluoroscopic guidance for the C7-T1 interspace. The skin overlying the area was anesthetized with 2 cubic centimeters of 2% Lidocaine with a sterile 27-gauge 1.5 inch needle. Likewise the deep tissues were infiltrated. There was no evidence of infection at the site of needle insertion. Then a 20-gauge 3.5 inch Tuohy epidural needle was advanced under fluoroscopic guidance with loss of resistance technique. The needle position was visualized in both AP and lateral views for the C7-T1 cervical epidural steroid injection. Needle position was verified, 0.2 cubic centimeters increments of Isovue-200 contrast dye injected under live fluoroscopy through microbore tubing and seen to outline the cervical epidural space in AP and lateral views. There was negative aspiration of heme, CSF and no paresthesias were noted. Then 6 milligrams of Celestone was slowly injected. The needle was cleared prior to removal from the skin. No adverse reactions were noted. The patient tolerated the procedure well and was brought to the recovery room awake and in good condition. After a brief stay in the recovery room monitored by the nurse, the patient was discharged to home. The patient was given both oral and written discharge and followup instructions and will follow up in the clinic in two to three weeks. The patient voiced understanding including understanding of those signs and symptoms that would require emergency care and also knows how to contact the office if there are any problems or questions in the meantime. PREOPERATIVE PAIN: 5/10. POSTOPERATIVE PAIN: 2/10. FOLLOWUP: Follow up in Pain Clinic in 3 weeks. CIPRIANO / SHRUTHI /[id number]
== END 2018-05-06 13:14 ==
LOC: MW.SDS 11:19
PROVIDERS: ATTEND Anesthesiology
DX: M46.92 Unspecified inflammatory spondylopathy, cervical region (principal); M50.10 Cervical disc disorder with radiculopathy, unspecified cervical region; M51.16 Intervertebral disc disorders with radiculopathy, lumbar region; M19.90 Unspecified osteoarthritis, unspecified site; M51.14 Intervertebral disc disorders with radiculopathy, thoracic region; M47.814 Spondylosis without myelopathy or radiculopathy, thoracic region; M96.1 Postlaminectomy syndrome, not elsewhere classified; E66.01 Morbid (severe) obesity due to excess calories; Z68.41 Body mass index [BMI] 40.0-44.9, adult; F17.200 Nicotine dependence, unspecified, uncomplicated; Z79.899 Other long term (current) drug therapy; Z88.2 Allergy status to sulfonamides
CPT/HCPCS: 64490; 64491; J0702; J2795; Q9966

== ENCOUNTER 2025-02-03 06:56 | Day surgery (SDC) | payer BC, OTHER ==
[2025-02-03] MEDS: Lactated Ringers 1,000 ML IV SCH (07:21)
[2025-02-03] MEDS ORDERED: Lidocaine 2% 5 ML SDV ONE (07:56)
[2025-02-03] MEDS ORDERED: Propofol 200 MG/20 ML SDV ONE ×2 (07:56→08:46)
[2025-02-03 09:26] VITALS: PULSE 53
[2025-02-03 09:42] VITALS: BP 105/79
== END 2025-02-03 09:50 | disposition home or self-care (01) ==
LOC: MW.SDS 06:56
PROVIDERS: ATTEND Surgery
DX: Z12.11 Encounter for screening for malignant neoplasm of colon (principal); K57.30 Diverticulosis of large intestine without perforation or abscess without bleeding; I10 Essential (primary) hypertension; G47.30 Sleep apnea, unspecified; F32.A Depression, unspecified; Z87.891 Personal history of nicotine dependence; Z79.899 Other long term (current) drug therapy
CPT/HCPCS: 45378; J2003; J2704; J7120; 00812